=== PATIENT | male | born 1950 | race Caucasian/White ===

== ENCOUNTER 2021-05-10 10:55 | Emergency (ER) | payer OTHER ==
[2021-05-10 11:53] VITALS: TEMP 98.9
[2021-05-10] MEDS ORDERED: ONDANSETRON 4 MG/2 ML VIAL IVP STA ×2 (12:39→13:50)
[2021-05-10] MEDS ORDERED: MORPHINE SULFATE 4 MG/ML SYRINGE IVP STA (12:39)
[2021-05-10 13:42] LABS: ALT 14 U/L (4-49); AST 21 U/L (17-59); African American GFR (CKD) >90 (>60 ml/min/1.73 sqM); Albumin 4.2 g/dL (3.5-5.0); Alkaline Phosphatase 101 U/L (38-126); Anion Gap 12 mmol/L; Blood Urea Nitrogen 14 mg/dL (9-20); Calcium 9.3 mg/dL (8.4-10.2); Carbon Dioxide 22 mmol/L (22-30); Chloride 106 mmol/L (98-107); Glucose 140 mg/dL (74-99); Lipase 88 U/L (23-300); Non-African American GFR(CKD) 79 (>60 ml/min/1.73 sqM); Potassium 4.5 mmol/L (3.5-5.1); Sodium 140 mmol/L (137-145); Total Bilirubin 0.5 mg/dL (0.2-1.3); Total Protein 7.6 g/dL (6.3-8.2)
[2021-05-10 13:44] LABS: Basophils # (A) 0.1 k/uL (0-0.2); Basophils % (A) 1 %; Eosinophils # (A) 0.1 k/uL (0-0.7); Eosinophils % (A) 1 %; HCT 50.7 % (39.0-53.0); HGB 16.9 gm/dL (13.0-17.5); Lymphocytes # (A) 1.3 k/uL (1.0-4.8); Lymphocytes % (A) 11 %; MCHC 33.4 g/dL (31.0-37.0); MCV 89.9 fL (80.0-100.0); Mean Platelet Volume 9.2; Monocytes # (A) 0.6 k/uL (0-1.0); Monocytes % (A) 5 %; Neutrophils # (A) 9.7 k/uL (1.3-7.7); Neutrophils % (A) 82 %; Platelet Count 183 k/uL (150-450); RBC 5.63 m/uL (4.30-5.90); RDW 14.2 % (11.5-15.5); WBC 11.8 k/uL (3.8-10.6)
[2021-05-10] MEDS ORDERED: HYDROmorphone 1 MG/ML 1 ML SYRINGE IVP STA ×2 (13:50→15:58)
--- NOTE | 2021-05-10 14:39 | CT ---
EXAMINATION TYPE: CT abdomen pelvis w con DATE OF EXAM: 05/10/2021 COMPARISON: None HISTORY: Right lower qudrant pain CT DLP: 755.8 mGycm Automated exposure control for dose reduction was used. CONTRAST: CT scan of the abdomen pelvis is performed with IV Contrast, patient injected with 100 mL of Isovue 3 00. FINDINGS- LUNG BASES-is subsegmental changes at the right lung base could represent infiltrate. Follow resoluti on is recommended as it somewhat nodular pattern. There appears to be pathologic adenopathy in the ri ght hilum measuring a short axis of 1.4 cm as well as the posterior mediastinum on the right measurin g a short axis of 1.5 cm is seen in the paraesophageal region.. LIVER/GB- No gross abnormality is appreciated. PANCREAS- No gross abnormality is seen. SPLEEN- No gross abnormality is seen. ADRENALS- No gross abnormality is seen. KIDNEYS/BLADDER-there is mild to moderate right hydronephrosis with hydroureter to the level of the p roximal ureter with an obstructing 4.5 mm right ureteral proximal calculus. BOWEL-nonspecific abdomen with no obstruction. Changes of diverticulosis noted.. LYMPH NODES-retroperitoneal soft tissue attenuation measuring short axis of 1.1 cm. There also is per ipancreatic soft tissue abnormal attenuation superiorly suspicious for adenopathy measuring 1.2 cm. O SSEOUS STRUCTURES-hypertrophic and degenerative changes of the spine. Arthropathy of the hips.. OTHER- atherosclerotic change aorta. There is a fat-containing periumbilical hernia with mild indura tion of the fat anteriorly. IMPRESSION- 1. Moderate hydronephrosis on the right secondary to obstructing 4.5 mm proximal right ureteral calcu maría. 2. There is adenopathy within the mediastinum, hilum, retroperitoneum, and mesentery as discussed abo ve. Correlate for history of malignancy. PET scan recommended. 3. Nodular area of subsegmental consolidation right lung base could be postinflammatory or infectious . Follow-up to resolution as neoplastic process not excluded. 4. Anterior abdominal wall hernia with some induration of fat correlate for tenderness in mild inflam matory change. No bowel loops are contained.
--- NOTE | 2021-05-10 15:42 | ED ---
Abdominal Pain HPI - General Chief Complaint: Abdominal Pain Stated Complaint: RT lower abd pain Time Seen by Provider: 05/10/21 11:50 Source: patient Mode of arrival: wheelchair Limitations: no limitations - History of Present Illness Initial Comments: Patient is a 70-year-old male presents emergency Department with reported abdominal pain. He states that the pain was sudden onset around 9 AM this morning. Is located in the right lower quadrant. Denies any radiation of the pain. No history of similar in the past. Denies dysuria or hematuria. Patient has not been able to have any urine production today. He attempted to have a bowel movement this morning however was unable to go. No recent diarrhea or constipation. No black or bloody stools. He denies any flank pain. No fevers or chills. No previous history of abdominal surgeries. Does have a history of umbilical hernia which has been able to be reduced. No other alleviating, pre cipitator modifying factors - Related Data Home Medications Medication Instructions Recorded Confirmed Albuterol Inhaler [Ventolin Hfa 2 puff INHALATION RT-BID 05/10/21 05/10/21 Inhaler] Fluticasone/Salmeterol [Advair 1 puff INHALATION RT-BID 05/10/21 05/10/21 250-50 Diskus] Simvastatin [Zocor] 40 mg PO HS 05/10/21 05/10/21 Tiotropium 18 Mcg/Puff [Spiriva] 2 puff INHALATION RT-DAILY 05/10/21 05/10/21 carvediloL [Coreg] 6.25 mg PO BID 05/10/21 05/10/21 Previous Rx's Medication Instructions Recorded Cephalexin [Keflex] 500 mg PO Q6HR #28 cap 05/10/21 HYDROcodone/APAP 10-325MG [Revere 1 tab PO Q6HR PRN 3 Days #12 tab 05/10/21 10-325] Ketorolac [Toradol] 10 mg PO Q8HR #15 tab 05/10/21 Ondansetron Odt [Zofran Odt] 4 mg PO Q8HR PRN #15 tab 05/10/21 Tamsulosin [Flomax] 0.4 mg PO DAILY #7 cap 05/10/21 Allergies Allergy/AdvReac Type Severity Reaction Status Date / Time No Known Allergies Allergy Verified 05/10/21 14:37 Review of Systems ROS Statement: Those systems with pertinent positive or pertinent negative responses have been documented in the HPI. ROS Other: All systems not noted in ROS Statement are negative. Past Medical History Past Medical History: No Reported History, Hypertension History of Any Multi-Drug Resistant Organisms: None Reported Smoking Status: Current every day smoker Past Alcohol Use History: None Reported Past Drug Use History: None Reported General Exam Limitations: no limitations General appearance: alert, in distress Head exam: Present: atraumatic, normocephalic, normal inspection Eye exam: Present: normal appearance, PERRL, EOMI. Absent: scleral icterus, conjunctival injection, periorbital swelling ENT exam: Present: normal exam, mucous membranes moist Neck exam: Present: normal inspection. Absent: tenderness, meningismus, lymphadenopathy Respiratory exam: Present: normal lung sounds bilaterally. Absent: respiratory distress, wheezes, rales, rhonchi, stridor Cardiovascular Exam: Present: regular rate, normal rhythm, normal heart sounds. Absent: systolic murmur, diastolic murmur, rubs, gallop, clicks GI/Abdominal exam: Present: soft, tenderness (rlq/right flank), normal bowel sounds. Absent: distended, guarding, rebound, rigid Extremities exam: Present: normal inspection, full ROM, normal capillary refill. Absent: tenderness, pedal edema, joint swelling, calf tenderness Back exam: Present: normal inspection Neurological exam: Present: alert, oriented X3, CN II-XII intact Psychiatric exam: Present: normal affect, normal mood Skin exam: Present: warm, dry, intact, normal color. Absent: rash Course Vital Signs 05/10/21 05/10/21 11:50 16:03 Temperature 98.9 F Pulse Rate 92 58 L Respiratory 19 16 Rate Blood Pressure 143/81 133/72 O2 Sat by Pulse 97 97 Oximetry Medical Decision Making - Medical Decision Making Vital patient is placed in room 33. A thorough history and physical exam is performed. IV is established laboratory studies were conducted. Patient was given 4 mg of morphine and 4 mg of Zofran. Laboratory studies reviewed. Normal kidney function. Hemoglobin is 16.9. Lactic acid 1.2. He does go over for a CT of his abdomen and pelvis which demonstrates a 4.5 mm right proximal ureteral stone with moderate hydronephrosis. There is associated adenopathy within the mediastinum, hilum, retroperitoneum and mesentery. Nodular area of subsegmental consolidation right lung base. Anterior abdominal wall hernia is reducible with no tenderness. These results are discussed with the patient. He does not have improvement in his pain with the morphine and therefore is given 1 mg of Dilaudid. Patient is reevaluated and has marked improvement in his symptoms. I did discuss the diagnosis, differential and treatment options. Patient is informed of the adenopathy that needs to be further evaluated by his primary care physician. Kids are at bedside and understands. He will be given pain medications and [place] for at home. If he has any new or worsening symptoms to include fevers, chills, inability to urinate or uncontrolled pain he needs to return to the hospital. Patient understands this. Given written and verbal discharge instructions and discharged home in stable condition - Lab Data Result diagrams: 05/10/21 12:55 05/10/21 12:55 Lab Results 05/10/21 05/10/21 05/10/21 Range/Units 12:55 12:55 13:01 WBC 11.8 H (3.8-10.6) k/uL RBC 5.63 (4.30-5.90) m/uL Hgb 16.9 (13.0-17.5) gm/dL Hct 50.7 (39.0-53.0) % MCV 89.9 (80.0-100.0) fL MCH 30.0 (25.0-35.0) pg MCHC 33.4 (31.0-37.0) g/dL RDW 14.2 (11.5-15.5) % Plt Count 183 (150-450) k/uL MPV 9.2 Neutrophils % 82 % Lymphocytes % 11 % Monocytes % 5 % Eosinophils % 1 % Basophils % 1 % Neutrophils # 9.7 H (1.3-7.7) k/uL Lymphocytes # 1.3 (1.0-4.8) k/uL Monocytes # 0.6 (0-1.0) k/uL Eosinophils # 0.1 (0-0.7) k/uL Basophils # 0.1 (0-0.2) k/uL Sodium 140 (137-145) mmol/L Potassium 4.5 (3.5-5.1) mmol/L Chloride 106 (98-107) mmol/L Carbon Dioxide 22 (22-30) mmol/L Anion Gap 12 mmol/L BUN 14 (9-20) mg/dL Creatinine 0.98 (0.66-1.25) mg/dL Est GFR (CKD-EPI)AfAm >90 (>60 ml/min/1.73 sqM) Est GFR (CKD-EPI)NonAf 79 (>60 ml/min/1.73 sqM) Glucose 140 H (74-99) mg/dL Plasma Lactic Acid Estuardo 1.2 (0.7-2.0) mmol/L Calcium 9.3 (8.4-10.2) mg/dL Total Bilirubin 0.5 (0.2-1.3) mg/dL AST 21 (17-59) U/L ALT 14 (4-49) U/L Alkaline Phosphatase 101 (38-126) U/L Total Protein 7.6 (6.3-8.2) g/dL Albumin 4.2 (3.5-5.0) g/dL Lipase 88 (23-300) U/L Urine Color Urine Appearance (Clear) Urine pH (5.0-8.0) Ur Specific Dawson (1.001-1.035) Urine Protein (Negative) Urine Glucose (UA) (Negative) Urine Ketones (Negative) Urine Blood (Negative) Urine Nitrite (Negative) Urine Bilirubin (Negative) Urine Urobilinogen (<2.0) mg/dL Ur Leukocyte Esterase (Negative) Urine RBC (0-5) /hpf Urine WBC (0-5) /hpf Urine WBC Clumps (None) /hpf Urine Bacteria (None) /hpf Urine Mucus (None) /hpf Urine Yeast (Budding) (None) /hpf 05/10/21 Range/Units 15:16 WBC (3.8-10.6) k/uL RBC (4.30-5.90) m/uL Hgb (13.0-17.5) gm/dL Hct (39.0-53.0) % MCV (80.0-100.0) fL MCH (25.0-35.0) pg MCHC (31.0-37.0) g/dL RDW (11.5-15.5) % Plt Count (150-450) k/uL MPV Neutrophils % % Lymphocytes % % Monocytes % % Eosinophils % % Basophils % % Neutrophils # (1.3-7.7) k/uL Lymphocytes # (1.0-4.8) k/uL Monocytes # (0-1.0) k/uL Eosinophils # (0-0.7) k/uL Basophils # (0-0.2) k/uL Sodium (137-145) mmol/L Potassium (3.5-5.1) mmol/L Chloride (98-107) mmol/L Carbon Dioxide (22-30) mmol/L Anion Gap mmol/L BUN (9-20) mg/dL Creatinine (0.66-1.25) mg/dL Est GFR (CKD-EPI)AfAm (>60 ml/min/1.73 sqM) Est GFR (CKD-EPI)NonAf (>60 ml/min/1.73 sqM) Glucose (74-99) mg/dL Plasma Lactic Acid Estuardo (0.7-2.0) mmol/L Calcium (8.4-10.2) mg/dL Total Bilirubin (0.2-1.3) mg/dL AST (17-59) U/L ALT (4-49) U/L Alkaline Phosphatase (38-126) U/L Total Protein (6.3-8.2) g/dL Albumin (3.5-5.0) g/dL Lipase (23-300) U/L Urine Color Yellow Urine Appearance Cloudy (Clear) Urine pH 5.5 (5.0-8.0) Ur Specific Dawson 1.050 H (1.001-1.035) Urine Protein Trace H (Negative) Urine Glucose (UA) Negative (Negative) Urine Ketones Negative (Negative) Urine Blood Large H (Negative) Urine Nitrite Negative (Negative) Urine Bilirubin Negative (Negative) Urine Urobilinogen <2.0 (<2.0) mg/dL Ur Leukocyte Esterase Negative (Negative) Urine RBC 105 H (0-5) /hpf Urine WBC 6 H (0-5) /hpf Urine WBC Clumps Few H (None) /hpf Urine Bacteria Rare H (None) /hpf Urine Mucus Occasional H (None) /hpf Urine Yeast (Budding) Occasional H (None) /hpf Disposition Clinical Impression: Ureteral calculus, right, Hydronephrosis Disposition: HOME SELF-CARE Condition: Stable Instructions (If sedation given, give patient instructions): Kidney Stones (ED) Additional Instructions: Please follow up with your primary care doctor in 2-4 days. Please call make an appointment with the urologist in regards to your stone. Take the medications as directed and return if you have any fevers, inability to urinate or uncontrolled pain. You need to follow-up with your primary care doctor in regards to your abnormal CAT scan. You need a PET scan of your body for further evaluation. Prescriptions: Tamsulosin [Flomax] 0.4 mg PO DAILY #7 cap Cephalexin [Keflex] 500 mg PO Q6HR #28 cap HYDROcodone/APAP 10-325MG [[place] 10-325] 1 tab PO Q6HR PRN 3 Days #12 tab PRN Reason: Pain Ketorolac [Toradol] 10 mg PO Q8HR #15 tab Ondansetron Odt [Zofran Odt] 4 mg PO Q8HR PRN #15 tab PRN Reason: Nausea Is patient prescribed a controlled substance at d/c from ED?: Yes When asked, does pt state using other controlled substances?: No If prescribed controlled substance>3 days was MAPS reviewed?: Prescribed <3 Days If opioid is for acute pain is fill amount 7 days or less?: Yes If Rx opioid, was Start Talking consent form obtained?: Yes Referrals: Nonstaff,Physician [Primary Care Provider] - 1-2 days Jignesh Joiner MD [STAFF PHYSICIAN] - 1-2 days Time of Disposition: 16:04
[2021-05-10 15:44] LABS: Appearance,Urine Cloudy (Clear); Bacteria,Urine Rare /hpf; Bilirubin,Urine Negative (Negative); Blood,Urine Large (Negative); Budding Yeast,Urine Occasional /hpf; Color,Urine Yellow; Glucose,Urine (UA) Negative (Negative); Ketones,Urine Negative (Negative); Leukocyte Esterase,Urine Negative (Negative); Mucus,Urine Occasional /hpf; Nitrite,Urine Negative (Negative); PH, Urine 5.5 (5.0-8.0); Protein,Urine Trace (Negative); RBC,Urine 105 /hpf (0-5); Urobilinogen,Urine <2.0 mg/dL (<2.0); WBC,Urine 6 /hpf (0-5)
[2021-05-10 16:04] VITALS: BP 133/72; PULSE 58; RESP 16
== END 2021-05-10 16:15 | disposition home or self-care (01) ==
LOC: EC 10:55
DX: N13.2 Hydronephrosis with renal and ureteral calculous obstruction (principal); F17.200 Nicotine dependence, unspecified, uncomplicated; I10 Essential (primary) hypertension; Z79.899 Other long term (current) drug therapy
CPT/HCPCS: 36415; 80053; 83605; 83690; 85025; 81001; 74177; 99284; 96374; 96375; 96376; J2270; J2405; J1170; Q9967